=== PATIENT | male | born 1950 | race Two or more races ===

== ENCOUNTER → 2024-10-16 | Outpatient (CLI) | payer MEDICARE, MEDICAID, SELFPAY ==
--- NOTE | 2024-10-16 10:30 | XR_ITS ---
Examination: MRI abdomen with intravenous contrast TECHNIQUE: Multiple axial and coronal MRI images abdomen post intravenous administration 20 cc gadolinium Exam date and time: 05/16/2024 1139 hours INDICATIONS: MR abdomen September 28, 2021 subtle enhancing posterior right lobe liver lesion 4.8 cm FINDINGS: No enhancing liver lesion noted Spleen is not enlarged No extrahepatic biliary tract dilatation No pancreatic mass Aorta normal size Normal adrenal glands Bilateral small renal cysts No hydronephrosis No ascites IMPRESSION: No liver lesions are confirmed
== END | disposition home or self-care (01) ==
LOC: SMRI 10:07
PROVIDERS: PCP Nurse Practitioner Family; Referring Provider Nurse Practitioner Family; Visit Provider Nurse Practitioner Family
DX: R10.9 Unspecified abdominal pain (principal)
CPT/HCPCS: 74182; A9579

== ENCOUNTER → 2025-01-12 | Outpatient (CLI) | payer MEDICARE, MEDICAID, SELFPAY ==
--- NOTE | 2025-01-12 10:30 | XR_ITS ---
Examination: Retroperitoneal ultrasound, complete Technique: Multiple high resolution grayscale images of the retroperitoneum obtained, including kidneys and bladder. Exam date and time:January 12, 2025 1031 hours INDICATIONS: Diagnosis benign prostatic hypertrophy FINDINGS: Right kidney 10.9 cm cortex 2.1 cm 19 mm lower pole cyst Left kidney 11.0 cm cortex 1.5 cm Lower pole 13 mm cyst Moderate bilateral renal parenchymal scar formation No bladder mass or bladder calculi Bladder prevoid volume 236 cc Significant prostatomegaly volume 51 cc no prostate nodules IMPRESSION: Moderate bilateral renal parenchymal scar reformation Significant prostatomegaly, volume 51 cc no prostate nodules
== END | disposition home or self-care (01) ==
PROVIDERS: PCP Nurse Practitioner Family; Referring Provider Nurse Practitioner Family; Visit Provider Nurse Practitioner Family
DX: N28.89 Other specified disorders of kidney and ureter (principal); N40.2 Nodular prostate without lower urinary tract symptoms
CPT/HCPCS: 76770

== ENCOUNTER → 2025-03-02 | Outpatient (CLI) | payer MEDICARE, MEDICAID, SELFPAY ==
--- NOTE | 2025-03-02 08:30 | XR_ITS ---
Examination: CT chest, without intravenous contrast. Sagittal and coronal 2-D reconstructions. Exam date and time: March 02, 2025 0909 hours Comparison July 22, 2024 INDICATIONS: COPD, coughing several years, severe diffuse pulmonary fibrosis with bronchiectasis on CT chest July 22, 2024 CTDI:vol (mGy) 10 DLP: (mGycm) 373 Technique: Multiple 3.0 mm axial sections of the chest to been obtained. Bone and lung density settings are obtained. Sagittal and coronal 2-D reconstructions have been obtained. Low dose protocols were performed. One or more of the following dose reduction techniques were used; automated exposure control, adjustment of the mA and/or KV according to patient size, use of iterative reconstruction technique. Findings: Thoracic aortic calcification no aneurysmal dilatation Mild enlargement main pulmonary artery segments No paratracheal tracheobronchial or bronchopulmonary adenopathy Again noted severe bilateral pulmonary fibrosis with bronchiectasis in the lower lung zones No interval pneumonia or pulmonary edema Liver is irregular in contour no focal liver lesions Absent gallbladder Spleen is not enlarged No pancreatic mass No hydronephrosis IMPRESSION: Again noted severe bilateral pulmonary fibrosis with bronchiectasis in the lower lung zones
== END | disposition home or self-care (01) ==
LOC: CCTX 08:11
PROVIDERS: PCP Nurse Practitioner Family; Referring Provider Internal Medicine; Visit Provider Internal Medicine
DX: J84.10 Pulmonary fibrosis, unspecified (principal); J47.9 Bronchiectasis, uncomplicated
CPT/HCPCS: 71250